=== PATIENT | female | born 1955 ===

== ENCOUNTER 2023-03-06 05:20 | Day surgery (SDC) | payer OTHER ==
[~2023-03-06] VITALS: Ht 165.1 cm; Wt 88.5 kg
== END 2023-03-06 11:20 | disposition home or self-care (01) ==
LOC: CIR.AMB 05:20
PROVIDERS: ATTEND Surgery
DX: K80.10 Calculus of gallbladder with chronic cholecystitis without obstruction (principal); Z20.822 Contact with and (suspected) exposure to COVID-19